=== PATIENT | male | born 1940 | race Caucasian/White ===

== ENCOUNTER → 2020-04-20 | Outpatient (CLI) | payer MEDICARE ==
--- NOTE | 2020-05-10 08:35 | REP ---
LUMBOSACRAL SPINE SERIES CLINICAL: Lower back pain. TECHNIQUE: AP, lateral, bilateral oblique, and coned down views of the lumbosacral spine. FINDINGS: Generalized osteopenia and early advanced multilevel degenerative changes through the visualized lower thoracic and lumbosacral spine noted. Findings include endplate sclerosis, osteophytosis, hypertrophic facet changes, and disc space narrowing. Alignment and lordosis maintained. No acute fracture/compression injury or subluxation. Atherosclerotic changes to the aorta noted. IMPRESSION: Osteopenia and advanced multilevel degenerative changes. MTDD
--- NOTE | 2020-05-10 08:36 | REP ---
LEFT HIP SERIES CLINICAL: Nontraumatic left hip pain. TECHNIQUE: Neutral and frog lateral views of the left hip. FINDINGS: Age-related changes are appreciated including mild osteopenia and minimal increased sclerosis along the acetabular roof. Joint space appears relatively normal. No further arthritic changes. No acute fracture or dislocation. Surrounding soft tissues normal. IMPRESSION: Essentially age related changes. MTDD
== END ==
LOC: M WUC 10:40
PROVIDERS: ATTEND Physician Assistant
DX: M25.78 Osteophyte, vertebrae (principal); M51.36 Other intervertebral disc degeneration, lumbar region; S39.012A Strain of muscle, fascia and tendon of lower back, initial encounter; S76.012A Strain of muscle, fascia and tendon of left hip, initial encounter; X58.XXXA Exposure to other specified factors, initial encounter; Y92.9 Unspecified place or not applicable